=== PATIENT | female | born 1980 | race American Indian/Alaskan Native ===

== ENCOUNTER 2018-11-27 13:56 | Emergency (ER) | payer OTHER ==
[~2018-11-27] VITALS: Ht 165.1 cm; Wt 86.2 kg
--- OUTSIDE RECORDS SUMMARY | ~2018-11-27 | XMS | Clinical Summary ---
Demographics + + + | Address | [address] | | | [place] [address] | + + + | Home Phone | | + + + | Preferred Language | Unknown | + + + | Marital Status | Single | + + + | Evangelical Affiliation | Unknown | + + + | Race | Unknown | + + + | Ethnic Group | Unknown | + + + Author + + + | Author | [facility] | | | and [place] | + + + | Organization | [facility] | | | and [place] | + + + | Address | Unknown | + + + | Phone | Unavailable | + + + Support + + + + + | Name | Relationship | Address | Phone | + + + + + | Elliott Antonio | ECON | [address] | | | | | [address], [place] | | | | | [address] | | + + + + + Care Team Providers + +------+ + | Care Wood Cutter Name | Role | Phone | + +------+ + | No, Physician | PP | Unavailable | + +------+ + Allergies No Known Allergies Current Medications + + +---------+---------+------+------+-------+ | Prescription | Sig. | Disp. | Refills | Star | End | Statu | | | | | | t | Date | s | | | | | | Date | | | + + +---------+---------+------+------+-------+ | hydrOXYzine | 1 capsule 3 times [...] | | | | | + + +---------+---------+------+------+-------+ Active Problems Not on file Social History [...] on file | | + + + Last Filed Vital Signs + [...] Vaccine: Influenza | | | | | (#1) | 8 | | | + + + + + Results Not on filefrom Last 3 Months
--- OUTSIDE RECORDS SUMMARY | ~2018-11-27 | XMS | Clinical Summary ---
Demographics + + + | Address | [address] | | | [place] [address] | + + + | Home Phone | | + + + | Preferred Language | Unknown | + + + | Marital Status | Single | + + + | Baptism Affiliation | Unknown | + + + | Race | Unknown | + + + | Ethnic Group | Unknown | + + + Author + + + | Author | [facility] | | | and [place] | + + + | Organization | [facility] | | | and [place] | + + + | Address | Unknown | + + + | Phone | Unavailable | + + + Support + + + + + | Name | Relationship | Address | Phone | + + + + + | Elliott Antonio | ECON | [address] | | | | | [address], [place] | | | | | [address] | | + + + + + Care Team Providers + +------+ + | Care Hoop Coiling Machine Operator Name | Role | Phone | [...]
[~2018-11-27 13:56] MED LIST: AMOXICILLIN500 MG PO; AUGMENTIN 875-1 EACH PO; CEPHALEXIN500 MG PO; KETOPROFEN50 MG PO; NORCO 5-325 TA1 EACH PO; PYRIDIUM200 MG PO; ZOFRAN ODT4 MG PO
[2018-11-27] MEDS ORDERED: NORCO 5-325 TA1 EACH PO (14:21)
[2018-11-27] MEDS ORDERED: DOXYCYCLINE HY100 MG PO (17:29)
== END 2018-11-27 18:00 | disposition home or self-care (01) ==
LOC: ED 13:56
DX: S90.32XA Contusion of left foot, initial encounter (principal); L03.116 Cellulitis of left lower limb; F17.200 Nicotine dependence, unspecified, uncomplicated; W04.XXXA Fall while being carried or supported by other persons, initial encounter
CPT/HCPCS: 73630; 80053; 83605; 85025; 85651; 86140; 96365; 99283-25; 99406; J0696

== ENCOUNTER 2018-12-23 13:13 | Emergency (ER) | payer OTHER ==
[~2018-12-23] VITALS: Ht 165.1 cm; Wt 86.2 kg
[~2018-12-23 13:13] MED LIST changes: +DOXYCYCLINE HY100 MG PO
--- OUTSIDE RECORDS SUMMARY | 2018-12-23 14:21 | XMS ---
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 - 2 Visits in 30 Days CARE PROVIDERS [facility] 06/04/2017-Current I PHONE: Unknown Marga has no Care Guidelines for this patient. Cat VISIT COUNT (12 MO.) 2 [facility] TOTAL 2 NOTE: Visits indicate total known visits. ED/C VISIT TRACKING (12 MO.) 12/23/2018 13:13 [facility] [place] TYPE: Emergency COMPLAINT: - OD 11/27/2018 13:56 [facility] [place] TYPE: Emergency COMPLAINT: - LEFT FOOT PAIN/INJURY DIAGNOSES: - Nicotine dependence, unspecified, uncomplicated - Pain in left foot - Fall while being carried or supported by other persons, initial encounter - Contusion of left foot, initial encounter - Cellulitis of left lower limb INPATIENT VISIT TRACKING (12 MO.) No inpatient visits to display in this time frame [email or web address]
--- OUTSIDE RECORDS SUMMARY | 2018-12-23 14:21 | XMS | Clinical Summary ---
Demographics + + + | Address | [address] | | | [place] [address] | + + + | Home Phone | | + + + | Preferred Language | Unknown | + + + | Marital Status | Single | + + + | Mosque Affiliation | Unknown | + + + | Race | Unknown | + + + | Ethnic Group | Unknown | + + + Author + + + | Author | [facility] | | | and [place]ana | + + + | Organization | [facility] | | | and [place] | + + + | Address | Unknown | + + + | Phone | Unavailable | + + + Support + + + + + | Name | Relationship | Address | Phone | + + + + + | Elliott Antonio | ECON | [address] | | | | | [address], [place] | | | | | [address] | | + + + + + Care Team Providers + +------+ + | Care Tetryl Nitrator Operator Name | Role | Phone | + +------+ + | No, Physician | PP | Unavailable | + +------+ + Allergies No Known Allergies Medications + + + +---------+------+------+-------+ | Medication | Sig | Dispensed | Refills | Star | End | Statu | | | | | | t | Date | s | | | | | | Date | | | + + + +---------+------+------+-------+ | hydrOXYzine | 1 capsule 3 times | 30 | 0 | 03/1 | | Activ | | pamoate (VISTARIL) | daily as needed for | capsule | | 8/20 | | e | | 25 mg | anxiety. | | | 18 | | | | capsuleIndications: | | | | | | | | Stress reaction | | | | | | | + + + +---------+------+------+-------+ Active Problems Not on file Social History + +-------+ +--------+------+ | Tobacco Use | Types | Packs/Day | Years | Date | | | | | Used | | + +-------+ +--------+------+ | Former Smoker | | | | | + +-------+ +--------+------+ + +---+---+---+ | Smokeless Tobacco: | | | | | Never Used | | | | + +---+---+---+ + + + | Sex Assigned at | Date Recorded | | | | + + + | Not on file | | + + + + + + + | Job Start Date | Occupation | Industry | + + + + | Not on file | Not on file | Not on file | + + + + + + + + | Travel History | Travel Start | Travel End | + + + + + + | No recent travel history available. | + + Last Filed Vital Signs + + + + | Vital Sign | Reading | Time Taken | + + + + | Blood Pressure | 113/70 | 11/24/20171200 PDT | + + + + | Pulse | 100 | 11/24/20171200 PDT | + + + + | Temperature | 36.7 C (98.1 F) | 11/24/20171200 PDT | + + + + | Respiratory Rate | 18 | 11/24/20171200 PDT | + + + + | Oxygen Saturation | 92% | 11/24/20171200 PDT | + + + + | Inhaled Oxygen | - | - | | Concentration | | | + + + + | Weight | 95.3 kg (210 lb) | 11/24/20171200 PDT | + + + + | Height | 165.1 cm (5' 5") | 11/24/20171200 PDT | + + + + | Body Mass Index | 34.95 | 11/24/20171200 PDT | + + + + Plan of Treatment + + + + + | Health Maintenance | Due Date | Last Done | Comments | + + + + + | Vaccine: | | | | | Dtap/Tdap/Td (1 - | 1 | | | | Tdap) | | | | + + + + + | Cervical Cancer | | | | | Screening (Pap) | 2 | | | + + + + + | Vaccine: Influenza | | | | | (Season Ended) | 9 | | | + + + + + Results Not on filefrom Last 3 Months Advance Directives Patient has advance care planning documents on file. For more information, please contact:[facility] [place] [address]
--- OUTSIDE RECORDS SUMMARY | 2018-12-23 14:21 | XMS | Clinical Summary ---
Demographics + + + | Address | [address] | | | [place] [address] | + + + | Home Phone | | + + + | Preferred Language | Unknown | + + + | Marital Status | Single | + + + | Pentecostal Affiliation | Unknown | + + + | Race | Unknown | + + + | Ethnic Group | Unknown | + + + Author + + + | Author | [facility] | | | and Rayana | + + + | Organization | [facility] | | | and [place] | + + + | Address | Unknown | + + + | Phone | Unavailable | + + + Support + + + + + | Name | Relationship | Address | Phone | + + + + + | Elliott Antonio | ECON | [address] | | | | | [address], [place] | | | | | [address] | | + + + + + Care Team Providers + +------+ + | Care Bathhouse Keeper Name | Role | Phone | + [...] on file. For more information, please contact:[facility] [place] [address]
--- NOTE | 2018-12-23 16:57 | EKG ---
[facility] [address] [place], [place] [address] Signed Normal sinus rhythm Normal ECG Confirmed by MICHAEL ESPINAL DO ([id number]) on 12/23/2018 4:56:46 PM Electronically Signed By: MICHAEL ESPINAL DO 12/23/18 1656 PATIENT NAME: LALIT GONZALES DEVAN Electrocardiogram DATE OF : 82 PHYSICIAN: MICHAEL ESPINAL DO REPORT #: [id number] REPORT IS CONFIDENTIAL AND NOT TO BE RELEASED WITHOUT AUTHORIZATION
== END 2018-12-23 22:20 | disposition home or self-care (01) ==
LOC: ED 13:13
DX: T43.202A Poisoning by unspecified antidepressants, intentional self-harm, initial encounter (principal); F15.90 Other stimulant use, unspecified, uncomplicated; Z79.899 Other long term (current) drug therapy
CPT/HCPCS: 36415; 51701; 80053; 80176; 81001; 82550; 84443; 84703; 85025; 93005; 93010; 99284-25; G0480

== ENCOUNTER 2020-08-17 08:35 | Emergency (ER) | payer OTHER ==
[~2020-08-17] VITALS: Ht 165.1 cm; Wt 86.2 kg
== END 2020-08-17 09:38 | disposition home or self-care (01) ==
LOC: ED 08:35
PROC: 0HQ1XZZ Repair Face Skin, External Approach (ICD-10-PCS; principal; 2020-08-17)
DX: S01.81XA Laceration without foreign body of other part of head, initial encounter (principal); W01.198A Fall on same level from slipping, tripping and stumbling with subsequent striking against other object, initial encounter; F17.200 Nicotine dependence, unspecified, uncomplicated
CPT/HCPCS: 12052; 90471; 90715; 99282-25

== ENCOUNTER 2020-12-25 03:54 | Emergency (ER) | payer OTHER ==
[~2020-12-25] VITALS: Ht 167.6 cm; Wt 90.7 kg
== END 2020-12-25 05:10 | disposition home or self-care (01) ==
LOC: ED 03:54
DX: S01.81XA Laceration without foreign body of other part of head, initial encounter (principal); W01.10XA Fall on same level from slipping, tripping and stumbling with subsequent striking against unspecified object, initial encounter; F17.200 Nicotine dependence, unspecified, uncomplicated
CPT/HCPCS: 12013; 99282-25